=== PATIENT | female | born 1960 | race Hispanic/Latino ===

== ENCOUNTER 2017-03-29 19:03 | Emergency (ER) | payer SELFPAY ==
[2017-03-29 19:19] VITALS: BP 123/75; PULSE 69; RESP 20; TEMP 97.8; O2SAT 98
--- NOTE | 2017-03-29 20:27 | C.PDOC ---
History Of Present Illness 56 y/o female presents to ED with complaint of right sided and right posterior chest pain, described as digitally and positionally reproducible, for 2 days. Denies falls or heavy lifting. Patient states she saw Dr. Bernard yesterday for similar complaints where she had negative cardiac workup. Presents today for further evaluation. Denies fever, chills, cough, rash, SOB, nausea, vomiting, or other associated symptoms. Time Seen by Provider: 03/29/17 20:16 Chief Complaint (Nursing): Chest Pain History Per: Patient History/Exam Limitations: no limitations Onset/Duration Of Symptoms: Days Current Symptoms Are (Timing): Still Present Quality: "Pain" Associated Symptoms: denies: Nausea, Dyspnea, Diaphoresis, Syncope Exacerbating Factors: Movement Recent travel outside of the [place]: No Past Medical History Reviewed: Historical Data, Nursing Documentation, Vital Signs Vital Signs: Last Vital Signs Temp 97.8 F 03/29/17 19:09 Pulse 69 03/29/17 19:09 Resp 20 03/29/17 20:56 BP 123/75 03/29/17 19:09 Pulse Ox 98 03/29/17 20:58 - Medical History PMH: No Chronic Diseases Family History: States: Unknown Family Hx - Social History Hx Alcohol Use: No Hx Substance Use: No - Immunization History Hx Tetanus Toxoid Vaccination: No Hx Influenza Vaccination: No Hx Pneumococcal Vaccination: No Review Of Systems Except As Marked, All Systems Reviewed And Found Negative. Constitutional: Negative for: Fever, Chills Cardiovascular: Negative for: Palpitations Respiratory: Negative for: Shortness of Breath, Wheezing Gastrointestinal: Negative for: Nausea, Vomiting, Abdominal Pain Musculoskeletal: Positive for: Other (right sided chest wall pain) Skin: Negative for: Rash Neurological: Negative for: Headache, Dizziness Physical Exam - Physical Exam Appears: Non-toxic Skin: Normal Color, Warm, Dry, No Rash Head: Atraumatic, Normacephalic Chest: Symmetrical, Tenderness (right posterior ribs, parasternal ), No Ecchymosis Cardiovascular: Rhythm Regular Respiratory: Normal Breath Sounds, No Accessory Muscle Use, No Rales, No Rhonchi , No Wheezing Gastrointestinal/Abdominal: Soft, No Tenderness Back: Normal Inspection Extremity: Normal ROM, Capillary Refill (< 2 sec. ) Neurological/Psych: Oriented x3, Normal Speech, Normal Cognition ED Course And Treatment ECG: Interpreted By Me ECG Rhythm: Sinus Rhythm ECG Interpretation: Normal Interpretation Of ECG: T wave inversions in leads II, III, and aVF Rate From EC (bpm) O2 Sat by Pulse Oximetry: 98 Pulse Ox Interpretation: Normal Progress Note: EKG ordered and reviewed. During evaluation patient was very upset that she had misplaced her phone. Patient does not want further evaluation and eloped ED. Disposition - Disposition Disposition: ELOPEMENT - ER ONLY Disposition Time: 20:30 Condition: GOOD - Clinical Impression Clinical Impression: Chest wall discomfort - Scribe Statement The provider has reviewed the documentation as recorded by the Sreaibe Devin Stover Provider Scribe Attestation: All medical record entries made by the Scribe were at my direction and personally dictated by me. I have reviewed the chart and agree that the record accurately reflects my personal performance of the history, physical exam, medical decision making, and the department course for this patient. I have also personally directed, reviewed, and agree with the discharge instructions and disposition.
== END 2017-03-29 20:56 | disposition left against medical advice (07) ==
LOC: C.ER 19:03
DX: R07.89 Other chest pain (principal)